=== PATIENT | male | born 1945 | race Caucasian/White ===

== ENCOUNTER 2017-07-15 20:30 | Inpatient (IN) | payer OTHER, MEDICARE ==
[~2017-07-15] VITALS: Ht 177.8 cm; Wt 49.6 kg
[~2017-07-15 20:30] MED LIST: ALBU90OI6 INH; BUDE10.22 IH; CIPR500 PO; MONT10T PO; RXHYD5325 PO
[2017-07-15] MEDS ORDERED: ALBU90OI INH (21:08)
[2017-07-15] MEDS ORDERED: BUDE10.22 INH (21:09)
[2017-07-15] MEDS ORDERED: CAPSAICIN CREAM (21:11)
[2017-07-15] MEDS ORDERED: MONT10T PO (21:11)
[2017-07-15] MEDS ORDERED: TIOT18 INH (21:12)
[2017-07-15] MEDS ORDERED: SILD50TA PO (21:12)
[2017-07-15] MEDS ORDERED: TRAZ50 PO (21:13)
[2017-07-16 05:05] LABS: Anion Gap 7 mmol/L (6-16); Blood Urea Nitrogen 17 mg/dL (8-24); Bun/Creatinine Ratio 26.6 (12.0-20.0); CO2, Blood 31 mmol/L (21-32); Calcium, Blood 8.6 mg/dL (8.5-10.1); Chloride, Blood 98 mmol/L (98-108); Creatinine, Blood 0.64 mg/dL (0.60-1.20); Glomerular Filtration Rate >60 (60-); Glucose, Blood 166 mg/dL (70-99); Potassium, Blood 3.7 mmol/L (3.5-5.5); Sodium, Blood 136 mmol/L (136-145)
[2017-07-16 16:01] LABS: PCO2 Arterial 40.3 mmHg (35-45); PO2 Arterial 62.4 mmHg (80-100); pH Blood Arterial 7.47 (7.35-7.45)
[2017-07-17 01:09] LABS: Influenza A Negative (NEGATIVE); Influenza B Negative (NEGATIVE)
[2017-07-17 04:08] LABS: Platelet Count 122 K/mm3 (150-400)
[2017-07-17] MEDS ORDERED: PRED10 PO (09:13)
== END 2017-07-17 09:50 | disposition home or self-care (01) | DRG 189 ==
LOC: ER 20:30 → SURS 21:57
PROVIDERS: Internal Medicine
DX: J96.01 Acute respiratory failure with hypoxia (principal); J44.1 Chronic obstructive pulmonary disease with (acute) exacerbation; E78.5 Hyperlipidemia, unspecified; F32.9 Major depressive disorder, single episode, unspecified; Z87.891 Personal history of nicotine dependence; Z79.899 Other long term (current) drug therapy; Z88.1 Allergy status to other antibiotic agents
CPT/HCPCS: 36415; 36600; 80048; 82803; 85049; 87804; 94010; 94640; 94664; 94667; 94760; 98960; 99285; J1650; J2920; J2930